=== PATIENT | male | born 1955 | race Caucasian/White ===

== ENCOUNTER 2016-04-20 16:23 | Emergency (ER) | payer OTHER ==
[~2016-04-20] VITALS: Ht 170.2 cm; Wt 72.7 kg
[~2016-04-20 16:23] MED LIST: ALBU8.5H2 INHALATION; ASPI-973 PO; BENZ1TAB7 PO; CEPH-512 PO; CETI-343 PO; DILT180C9 PO; FLUT16SP NASAL; GABA-502 PO; HYDR50CA PO; IMI100 PO; METF500T4 PO; OMEP20CA11 PO; OXYC1TAB24 PO; SIMV40TA5 PO
[2016-04-20 16:35] VITALS: BP 160/97; PULSE 108; RESP 18; O2SAT 97
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
[2016-04-20] MEDS ORDERED: Lidocaine 2% 5 mL Urojet Topical Jelly Syringe TOPICAL ONE (18:40)
[2016-04-20] MEDS ORDERED: Lidocaine 2% 6mL Topical Jelly TOPICAL ONE (18:50)
[2016-04-20 19:06] VITALS: BP 150/80; PULSE 98; RESP 18; O2SAT 96
== END 2016-04-20 19:07 | disposition home or self-care (01) ==
LOC: SED 16:23
DX: L98.9 Disorder of the skin and subcutaneous tissue, unspecified (principal); I10 Essential (primary) hypertension; E11.9 Type 2 diabetes mellitus without complications; Z76.0 Encounter for issue of repeat prescription; Z88.8 Allergy status to other drugs, medicaments and biological substances; Z88.0 Allergy status to penicillin; Z79.82 Long term (current) use of aspirin; Z79.84 Long term (current) use of oral hypoglycemic drugs

== ENCOUNTER 2016-05-20 01:45 | Emergency (ER) | payer OTHER ==
[~2016-05-20] VITALS: Ht 170.2 cm; Wt 77.3 kg
[2016-05-20 01:57] VITALS: BP 144/89; PULSE 70; RESP 16; O2SAT 98
[2016-05-20 02:24] LABS: BASOPHILS % (AUTO) 0.3 % (0-3); EOSINOPHILS % (AUTO) 3.4 % (0-5); MONOCYTES % (AUTO) 12.9 % (4-12); Mean Corpuscular Hemoglobin 29.7 pg (27.0-35.0); Mean Corpuscular Volume 82.1 fL (81-100); NEUTROPHILS % (AUTO) 43.7 % (40-74); Platelet Count 244 bil/L (150-400)
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
[2016-05-20 02:46] LABS: TROPONIN T 0.01 ug/L (0.0-0.011)
[2016-05-20 02:58] LABS: Magnesium 2.2 mg/dL (1.6-2.6)
[2016-05-20 06:19] VITALS: BP 138/82; PULSE 72; RESP 18; O2SAT 96
--- NOTE | 2016-05-20 09:05 | DRSVH ---
PROCEDURE: CT BRAIN WITHOUT CONTRAST ([id number]) INDICATIONS: right facial numbness and droop for 3 days TECHNIQUE: Noncontrast 4.5 mm thick angled axial sections acquired from the foramen magnum to the vertex, with c oronal reformats. COMPARISON: [facility], CT, CT BRAIN WO CON, 09/15/2015, 16:59. FINDINGS: Image quality: Excellent. CSF spaces: Basal cisterns are patent. No extra-axial fluid collections. Ventricles are normal in size and shape. Brain: No midline shift. No intracranial masses or hemorrhage. Massey-white matter interface is norm al. Skull and face: Calvarium and visualized facial bones are intact, without suspicious lesions. Sinuses: Visualized sinuses and mastoids are clear. IMPRESSION: No acute disease, source of current symptoms is not seen. Depending on the clinical stat us followup by MR scanning may be warranted. Dictated by: Stevan Go M.D. on 05/20/2016 at 9:04 Approved by: Stevan Go M.D. on 05/20/2016 at 9:05
--- NOTE | 2016-05-20 11:06 | DRSVH ---
PROCEDURE: X-RAY CHEST ONE VIEW, PORTABLE ([id number]) INDICATIONS: CP TECHNIQUE: One view of the chest was acquired. COMPARISON: [facility], CT, CHEST W/O CONTRAST, 08/08/2013, 16:20. [facility] l, CT, CT CHEST ABD PELVIS W CON, 01/11/2016, 5:55. [facility], CR, XR CHEST 2VW, 2015, 11:30. [facility], CR, XR CHEST 1VW, 01/11/2016, 9:09. FINDINGS: Surgical changes and devices: None. Lungs and pleura: No pleural effusions or pneumothorax. Lungs are clear except for previously docum ented left upper lobe posterior partially calcified presumed granuloma. Mediastinum: Mediastinal contours appear normal. Heart size is normal. Bones and chest wall: No suspicious bony lesions. Overlying soft tissues appear unremarkable. IMPRESSION: Stable appearance of the chest, with a partially calcified posterior left upper lobe gran uloma. Source of chest pain is not seen. Dictated by: Stevan Go M.D. on 05/20/2016 at 11:04 Approved by: Stevan Go M.D. on 05/20/2016 at 11:06
== END 2016-05-20 06:20 | disposition home or self-care (01) ==
LOC: EDUNIT# 01:45 → EDBD 01:45 → SED 01:45
DX: G45.9 Transient cerebral ischemic attack, unspecified (principal); F41.9 Anxiety disorder, unspecified; M25.512 Pain in left shoulder; W45.8XXD Other foreign body or object entering through skin, subsequent encounter; Y93.9 Activity, unspecified; Y92.9 Unspecified place or not applicable; Y99.8 Other external cause status; I10 Essential (primary) hypertension; E11.9 Type 2 diabetes mellitus without complications; Z88.0 Allergy status to penicillin; Z88.8 Allergy status to other drugs, medicaments and biological substances; Z79.82 Long term (current) use of aspirin; Z79.84 Long term (current) use of oral hypoglycemic drugs; Z59.0 Homelessness

== ENCOUNTER 2016-05-22 16:58 | Emergency (ER) | payer OTHER ==
[~2016-05-22] VITALS: Ht 170.2 cm; Wt 170.0 kg
[2016-05-22 17:22] VITALS: BP 139/90; PULSE 102; RESP 18; O2SAT 98
[2016-05-22 20:50] LABS: BASOPHILS % (AUTO) 0.1 % (0-3); EOSINOPHILS % (AUTO) 2.5 % (0-5); MONOCYTES % (AUTO) 8.9 % (4-12); Mean Corpuscular Hemoglobin 30.1 pg (27.0-35.0); Mean Corpuscular Volume 85.1 fL (81-100); NEUTROPHILS % (AUTO) 48.8 % (40-74); Platelet Count 232 bil/L (150-400)
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
[2016-05-22] MEDS ORDERED: LORazepam 1 mg Tablet PO ONE (21:50)
[2016-05-23 03:56] VITALS: BP 122/77; PULSE 93; RESP 18; O2SAT 98
[2016-05-23 06:29] VITALS: BP 117/75; PULSE 100; RESP 18; O2SAT 98
[2016-05-23 12:26] VITALS: BP 122/90; PULSE 112; RESP 14; O2SAT 96
[2016-05-23] MEDS ORDERED: Butalbital-Acet-Caffeine Tablet PO ONE (13:30)
[2016-05-23] MEDS ORDERED: LORA1TAB PO (17:47)
[2016-05-23] MEDS ORDERED: BUTA1CAP39 PO (17:47)
== END 2016-05-23 18:06 | disposition home or self-care (01) ==
LOC: SED 16:58
DX: F33.1 Major depressive disorder, recurrent, moderate (principal); R45.851 Suicidal ideations; F20.0 Paranoid schizophrenia; I10 Essential (primary) hypertension; E11.9 Type 2 diabetes mellitus without complications; Z59.0 Homelessness; Z79.82 Long term (current) use of aspirin; Z79.84 Long term (current) use of oral hypoglycemic drugs; Z88.0 Allergy status to penicillin; Z88.5 Allergy status to narcotic agent; Z91.030 Bee allergy status

== ENCOUNTER 2016-05-31 19:20 | Emergency (ER) | payer MEDICAID, OTHER ==
[~2016-05-31] VITALS: Ht 172.7 cm; Wt 81.8 kg
[~2016-05-31 19:20] MED LIST changes: +BUTA1CAP39 PO; +LORA1TAB PO
[2016-05-31 19:23] VITALS: BP 157/104; PULSE 115; RESP 17; O2SAT 100
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
[2016-05-31] MEDS ORDERED: LORazepam 0.5 mg Tablet PO ONE (20:45)
[2016-05-31 21:01] VITALS: BP 134/85; PULSE 90; RESP 16; O2SAT 97
== END 2016-05-31 21:02 | disposition home or self-care (01) ==
LOC: SED 19:20
DX: F41.9 Anxiety disorder, unspecified (principal); F20.0 Paranoid schizophrenia; I10 Essential (primary) hypertension; E11.9 Type 2 diabetes mellitus without complications; Z79.82 Long term (current) use of aspirin; Z79.84 Long term (current) use of oral hypoglycemic drugs; Z88.0 Allergy status to penicillin; Z88.8 Allergy status to other drugs, medicaments and biological substances; Z59.0 Homelessness

== ENCOUNTER 2016-08-24 10:30 | Emergency (ER) | payer OTHER ==
[~2016-08-24] VITALS: Ht 170.2 cm; Wt 77.3 kg
[2016-08-24 10:36] VITALS: BP 152/104; PULSE 96; RESP 10; O2SAT 98
[2016-08-24 11:33] LABS: BASOPHILS % (AUTO) 0.2 % (0-3); EOSINOPHILS % (AUTO) 3.1 % (0-5); MONOCYTES % (AUTO) 9.6 % (4-12); Mean Corpuscular Hemoglobin 30.1 pg (27.0-35.0); Mean Corpuscular Volume 86.5 fL (81-100); NEUTROPHILS % (AUTO) 63.2 % (40-74); Platelet Count 237 bil/L (150-400)
[2016-08-24] MEDS ORDERED: MeTOProlol 1 mg/mL 5 mL Inj IVPUSH ONE (11:45)
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
[2016-08-24 11:57] VITALS: BP 135/85; PULSE 76; RESP 22; O2SAT 99
[2016-08-24 11:58] VITALS: BP 157/94
[2016-08-24 12:11] LABS: Magnesium 2.1 mg/dL (1.6-2.6)
[2016-08-24 12:13] LABS: TROPONIN T < 0.010 ug/L (0.0-0.011)
--- NOTE | 2016-08-24 12:43 | DRSVH ---
PROCEDURE: X-RAY CHEST ONE VIEW, PORTABLE ([id number]) INDICATIONS: CP TECHNIQUE: One view of the chest was acquired. COMPARISON: [facility], CR, XR CHEST 1VW (PORTABLE), 05/20/2016, 1:57. FINDINGS: Surgical changes and devices: None. Lungs and pleura: No pleural effusions or pneumothorax. Unchanged chest and left upper lobe nodule. Mediastinum: Mediastinal contours appear normal. Heart size is normal. Bones and chest wall: No suspicious bony lesions. Overlying soft tissues appear unremarkable. IMPRESSION: No acute pulmonary process. Dictated by: Areli Bear M.D. on 08/24/2016 at 11:41 Approved by: Areli Bear M.D. on 08/24/2016 at 11:42
[2016-08-24] MEDS ORDERED: DOXY100C43 PO (13:22)
[2016-08-24] MEDS ORDERED: DILT90TA PO (13:22)
[2016-08-24] MEDS ORDERED: EPIN0.3P2 IJ (13:22)
[2016-08-24] MEDS ORDERED: ACET-171 PO (13:22)
[2016-08-24] MEDS ORDERED: AMT50T PO (13:22)
[2016-08-24] MEDS ORDERED: DOCU250C2 PO (13:22)
[2016-08-24] MEDS ORDERED: PROP20TA5 PO ×2 (13:22→14:33)
[2016-08-24] MEDS ORDERED: DIAZ10TA3 PO (13:22)
[2016-08-24] MEDS ORDERED: DILT90CA PO (14:33)
[2016-08-24 14:38] VITALS: BP 125/85; PULSE 64; RESP 16; O2SAT 100
== END 2016-08-24 14:43 | disposition home or self-care (01) ==
LOC: SED 10:30
DX: R07.89 Other chest pain (principal); R00.2 Palpitations; R06.02 Shortness of breath; R11.0 Nausea; I25.10 Atherosclerotic heart disease of native coronary artery without angina pectoris; I10 Essential (primary) hypertension; F41.9 Anxiety disorder, unspecified; F32.9 Major depressive disorder, single episode, unspecified; I25.2 Old myocardial infarction; E11.9 Type 2 diabetes mellitus without complications; F20.0 Paranoid schizophrenia; Z59.0 Homelessness; Z79.84 Long term (current) use of oral hypoglycemic drugs; Z79.82 Long term (current) use of aspirin; Z88.0 Allergy status to penicillin; Z88.8 Allergy status to other drugs, medicaments and biological substances